=== PATIENT | male | born 1955 | race Caucasian/White ===

== ENCOUNTER 2016-11-18 10:55 | Emergency (ER) | payer MEDICARE, OTHER ==
[2016-11-18 11:47] LABS: BASOPHIL 0.2 % (0-2); EOSINOPHIL 1.8 % (0-5); HCT 35.1 % (42.0-52.0); LYMPHOCYTE 10.8 % (15-48); MCH 28.2 pg (25.0-31.0); MCHC 34.2 g/dL (32.0-36.0); MCV 82.6 fL (78.0-100.0); MONOCYTE 10.1 % (0-12); MPV 9.8 fL (6.0-9.5); NEUTROPHIL 77.1 % (41-80); PLT 339 K/uL (150-400); RBC 4.25 M/uL (4.70-6.00); RDW 16.3 % (11.5-14.0); WBC 9.7 K/uL (4.0-10.5)
[2016-11-18 11:53] LABS: INR 1.4 (0.9-1.2); PROTHROMBIN TIME 16.7 SECONDS (11.7-14.0); PTT 37.3 SECONDS (23.2-31.4)
[2016-11-18 12:00] LABS: LACTIC ACID 1.4 mmol/L (0.5-2.2)
[2016-11-18 12:04] LABS: CKMB 2.91 ng/mL (0.97-4.94)
[2016-11-18 12:13] LABS: ALBUMIN 3.2 g/dL (3.4-4.8); BILIRUBIN - TOTAL 0.2 mg/dL (0.1-1.0); CREATININE 5.3 mg/dL (0.7-1.2); GLOBULIN (CALCULATION) 2.8 g/dL (2.2-4.2); POTASSIUM 3.6 mmol/L (3.5-5.1)
[2016-11-18 12:14] LABS: TROPONIN T 0.169 ng/mL
== END 2016-11-18 16:08 | disposition other institution (70) ==
LOC: FER 10:55
PROVIDERS: Emergency Medicine; Nurse Practitioner
DX: R55 Syncope and collapse (principal); I48.91 Unspecified atrial fibrillation; E11.9 Type 2 diabetes mellitus without complications; E78.5 Hyperlipidemia, unspecified; F32.9 Major depressive disorder, single episode, unspecified; G31.9 Degenerative disease of nervous system, unspecified; Z88.7 Allergy status to serum and vaccine; Z88.3 Allergy status to other anti-infective agents; Z88.5 Allergy status to narcotic agent; Z88.8 Allergy status to other drugs, medicaments and biological substances
CPT/HCPCS: 36415; 70450; 71010; 80053; 80061; 82550; 82553; 83605; 83874; 84484; 85025; 85610; 85730; 87040; 93005